=== PATIENT | female | born 2000 | race Caucasian/White ===

== ENCOUNTER 2020-05-20 18:37 | Emergency (ER) | payer OTHER, SELFPAY ==
--- NOTE | ~2020-05-20 | XR_ITS ---
EXAMINATION: XR chest 2V DATE: 05/20/2020 20:08 INDICATION: Left-sided chest pain TECHNIQUE: Frontal and lateral views of the chest are obtained COMPARISON: None available FINDINGS: The lungs are free of acute opacities. There is no pleural effusion or pneumothorax. The ca rdiomediastinal silhouette is normal. The visualized bones and soft tissues are unremarkable. IMPRESSION: 1. No acute cardiopulmonary abnormality. Reviewed, dictated and finalized at location A. NESS ACCOUNT EXECUTIVE
--- NOTE | 2020-05-20 18:54 | ECG_ITS ---
Measurements Intervals [place] Rate: 75 P: 48 DE: 138 QRS: 47 QRSD: 69 T: 36 QT: 366 QTc: 410 Interpretive Statements SINUS RHYTHM RSR' IN V1 OR V2, PROBABLY NORMAL VARIANT BASELINE ARTIFACT- I, II, AVR, AVF NORMAL ECG Electronically Signed On 05-21-2020 7:10:51 HEAD WOOD GRINDER by Yunier Ramirez D.O.
[2020-05-20 18:59] VITALS: BP 126/88; PULSE 78; RESP 18; O2SAT 100
--- NOTE | 2020-05-20 19:46 | ED.NEUROSD ---
HPI - Neuro Symptoms/Deficit General Chief Complaint: Neuro Symptoms/Deficit Stated Complaint: palpitaions, facial numbness apr 30 Time Seen by Provider: 05/20/20 19:14 History of Present Illness HPI Narrative: Patient is a 19-year-old female who presents ER with complaints of chest pain/headache. Symptoms began 2 days ago. She started having left-sided chest pain nonradiating that was intense initially and then has decreased. Unsure modifying factors. She then felt like she was having palpitations and also developed some brief changes in her vision that have resolved and developed diffuse headache that is aching and fullness. No sinus congestion or sore throat. No productive cough. No ringing in ears but does have some pressure in her right ear. Has not had similar symptoms before. Does report that she had some mild anxiousness when it occurred but that is since resolved. Related Data Home Medications Medication Instructions Recorded Confirmed No Home Medications 05/20/20 05/20/20 Allergies Allergy/AdvReac Type Severity Reaction Status Date / Time No Known Allergies Allergy Verified 05/20/20 18:58 Review of Systems Review of Systems: All systems reviewed & are unremarkable except as noted in HPI and below Constitutional: Constitutional: Denies chills, Denies fever(s) and Denies weakness ENT: Denies nasal congestion and Denies sore throat Comments: Right ear pressure Cardiovascular: Cardiovascular: Reports chest pain, Denies rapid heart rate and Denies radiating jaw, neck or arm pain Respiratory: Respiratory: Denies cough, Denies dyspnea and Denies wheezing Gastrointestinal: Gastrointestinal: Denies abdominal pain, Denies nausea and Denies vomiting Neurologic: Reports headache(s), Denies focal weakness and Denies numbness PMFSH Past Medical History Medical History (Updated 05/20/20 @ 21:00 by Carmine Hooper MD) Anxiety Kidney stones Surgical History Surgical History (Updated 05/20/20 @ 19:48 by Carmine Hooper MD) History of abdominal surgery 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 Social History Social History (Updated 05/20/20 @ 19:48 by Carmine Hooper MD) Smoking status: Never smoker Gender identity (if verbalized by the patient): Female Exam Narrative: Exam Narrative: GENERAL: Well-appearing, well-nourished, and in no acute distress. HEAD: Normocephalic, atraumatic. EYES: PERRL and EOMI. ENT: Mucous membranes moist. TMs normal bilaterally. NECK: Supple. No carotid bruits. CHEST: Clear to auscultation. No respiratory distress. HEART: Regular rate and rhythm. Normal peripheral pulses. ABDOMEN: Soft, nontender, nondistended. EXTREMITIES: Normal range of motion. No edema. SKIN: Warm, dry, no rash. NEURO: Alert and oriented x3. Course Course Emergency Course: Informed of results. Sx improved, still pressure in the ear, will give meclizine. Vital Signs Vital signs: Vital Signs Pulse Rate 78 05/20/20 18:59 Respiratory Rate 18 05/20/20 18:59 Blood Pressure 126/88 05/20/20 18:59 Pulse Oximetry 100 05/20/20 18:59 Pulse Rate 78 05/20/20 18:59 Respiratory Rate 18 05/20/20 18:59 Blood Pressure 126/88 05/20/20 18:59 Pulse Oximetry 100 05/20/20 18:59 MDM - Neuro Symptoms/Deficit Lab Data Result diagrams: 05/20/20 19:46 05/20/20 19:46 Labs: Lab Results 05/20/20 05/20/20 05/20/20 Range/Units 19:46 19:46 19:46 WBC 7.0 (4.5-10.0) K/mm3 RBC 4.51 (4.2-5.4) M/mm3 Hgb 13.3 (12.0-15.0) g/dL Hct 38.6 (37.0-47.0) % MCV 85.6 (80-100) fl MCH 29.5 (26-34) pg MCHC 34.5 (32-36) g/dl RDW 12.3 (11.5-14.5) % Plt Count 318 (150-375) k/mm3 MPV 9.2 (7.4-10.4) fl Immature Gran % (Auto) 0.3 (0-0.5) % Neut % (Auto) 61.8 (45.5-73.1) % Lymph % (Auto) 28.5 (18.3-44.2) % [place] % (Auto) 8.4 (2.6-8.5) % Eos % (Auto) 0.7 (0-4.4) % Baso % (Auto) 0.3 (0.2
[2020-05-20 19:54] LABS: Basophils Percent Auto 0.3 % (0.2-1.2); Eosinophils Absolute Auto 0.1 K/mm3 (0-0.3); Eosinophils Percent Auto 0.7 % (0-4.4); Hematocrit 38.6 % (37.0-47.0); Hemoglobin 13.3 g/dL (12.0-15.0); Immature Granulocyte Absolute 0.02 K/mm3 (0.00-0.031); Immature Granulocyte Percent A 0.3 % (0-0.5); Lymphocytes Percent Auto 28.5 % (18.3-44.2); Mean Corpuscular HGB Conc 34.5 g/dl (32-36); Mean Corpuscular Hemoglobin 29.5 pg (26-34); Mean Corpuscular Volume 85.6 fl (80-100); Mean Platelet Volume 9.2 fl (7.4-10.4); Monocytes Absolute Auto 0.6 K/mm3 (0.1-0.6); Monocytes Percent Auto 8.4 % (2.6-8.5); Neutrophils Absolute Auto 4.3 K/mm3 (1.3-6.7); Neutrophils Percent Auto 61.8 % (45.5-73.1); Platelet Count Result 318 k/mm3 (150-375); Red Blood Count 4.51 M/mm3 (4.2-5.4); Red Cell Distribution Width 12.3 % (11.5-14.5)
--- NOTE | 2020-05-20 19:55 | PC.NURSE ---
pt to x ray
[2020-05-20] MEDS: MORPHINE SULFATE (*CRX) 4 MG/ML INJ IV PUSH (20:03)
[2020-05-20 20:06] LABS: Prothrombin Time 13.8 Seconds (11.1-14.7)
[2020-05-20 20:08] LABS: Alanine Aminotransferase 14 U/L (4-35); Albumin Level 4.4 g/dL (3.5-5.1); Alkaline Phosphatase 69 U/L (38-126); Anion Gap 10 mmol/L (8-16); Aspartate Amino Transferase 21 U/L (14-36); Bilirubin,Total 0.7 mg/dL (0.2-1.3); Blood Urea Nitrogen 11 mg/dL (7-17); Calcium 9.3 mg/dL (8.4-10.2); Carbon Dioxide 23 mmol/L (22-30); Chloride 106 mmol/L (98-107); Estimated CRCL calculation 74 ml/min; Estimated Glomerular Filt Rate > 60; Glucose 86 mg/dL (65-105); Potassium 3.9 mmol/L (3.4-5.0); Sodium 139 mmol/L (137-145)
[2020-05-20 20:09] LABS: D Dimer 0.31 ug/mL (<0.48)
[2020-05-20 20:21] LABS: Troponin I < 0.012 ng/mL (0.000-0.034)
[2020-05-20] MEDS: MECLIZINE HCL 25 MG TABLET PO (21:19)
[2020-05-20 21:25] VITALS: BP 109/66; PULSE 76; RESP 16; O2SAT 98
== END 2020-05-20 21:29 | disposition home or self-care (01) ==
PROVIDERS: Emergency Provider Emergency Medicine
DX: R07.9 Chest pain, unspecified (principal); H92.01 Otalgia, right ear
CPT/HCPCS: 36415; 71046; 80053; 84484; 85025; 85380; 85610; 85730; 93005; 96374; 99284; A9270; J2270

== ENCOUNTER 2020-05-23 02:30 | Emergency (ER) | payer OTHER, SELFPAY ==
--- NOTE | ~2020-05-23 | XR_ITS ---
EXAMINATION: XR chest 1V portable 05/23/2020 03:00 INDICATION: Chest pain PROCEDURE: AP portable chest COMPARISON: 05/20/2020 FINDINGS: The lungs are clear. The cardiomediastinal silhouette is within normal limits. There are no pleural effusions. There is no pneumothorax suspected. IMPRESSION: 1: NO ACUTE CARDIOPULMONARY DISEASE. Reviewed, dictated and finalized at location A. RAL COUNSELOR
[2020-05-23 02:36] VITALS: BP 135/82; PULSE 87; RESP 18; TEMP 36.2; O2SAT 100
[2020-05-23 02:44] VITALS: PULSE 84
--- NOTE | 2020-05-23 02:44 | ECG_ITS ---
Measurements Intervals [place] Rate: 79 P: 48 AR: 137 QRS: 47 QRSD: 83 T: 21 QT: 362 QTc: 416 Interpretive Statements SINUS RHYTHM NORMAL ECG Electronically Signed On 05-23-2020 7:10:54 COMMERCIAL PLUMBER by Yunier Ramirez D.O.
--- NOTE | 2020-05-23 02:54 | ED.GENADULT ---
HPI - General Adult General Chief complaint: Chest Pain Stated complaint: chest pain Time Seen by Provider: 05/23/20 02:44 History of Present Illness HPI narrative: Patient is a 19-year-old female who presents the emergency department chief complaint of chest pain. Patient reports that she was seen in the emergency department for vertigo type symptoms and chest pain several days ago. The patient was treated with Antivert and an antihistamine. The patient derek had continual chest pain that she describes as sharp and at the sternal border since then. The patient states that it is worsened with inspiration and patient and improved with rest. Patient denies any significant past medical history reports she has not followed up with her primary care physician Related Data Allergies Allergy/AdvReac Type Severity Reaction Status Date / Time No Known Allergies Allergy Verified 05/20/20 18:58 Review of Systems Review of Systems: Narrative: A 10 system review of systems was completed on the patient and is negative except for what is stated in the HPI. Nursing and ancillary documentation was reviewed. 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 Social History Social History Smoking status: Never smoker Gender identity (if verbalized by the patient): Female Exam Narrative: Exam Narrative: GENERAL: Well-appearing, well-nourished, and in no acute distress. HEAD: Normocephalic, atraumatic. EYES: PERRLA and EOMI. ENT: Nares clear, no rhinorrhea or epistaxis. Mucous membranes moist. NECK: Supple. CHEST: Clear to auscultation. No respiratory distress. Chest wall is tender to palpation along the sternal border HEART: Regular rate and rhythm. No murmur heard. Normal peripheral pulses. ABDOMEN: Soft, nontender, nondistended, normal active bowel sounds. EXTREMITIES: Normal range of motion. No edema. SKIN: Warm, dry, no rash. NEURO: No focal deficits. Alert and oriented x3. PSYCH: Normal mood and affect. Course Vital Signs Vital signs: Vital Signs Temperature 36.2 C L 05/23/20 02:36 Pulse Rate 87 05/23/20 02:36 Respiratory Rate 18 05/23/20 02:36 Blood Pressure 135/82 05/23/20 02:36 Pulse Oximetry 100 05/23/20 02:36 Temperature 36.2 C L 05/23/20 02:36 Pulse Rate 84 05/23/20 02:44 Respiratory Rate 18 05/23/20 02:36 Blood Pressure 135/82 05/23/20 02:36 Pulse Oximetry 100 05/23/20 02:36 Medical Decision Making Vital Signs Vital Signs: Vital Signs Temperature 36.2 C L 05/23/20 02:36 Pulse Rate 87 05/23/20 02:36 Respiratory Rate 18 05/23/20 02:36 Blood Pressure 135/82 05/23/20 02:36 Pulse Oximetry 100 05/23/20 02:36 Temperature 36.2 C L 05/23/20 02:36 Pulse Rate 84 05/23/20 02:44 Respiratory Rate 18 05/23/20 02:36 Blood Pressure 135/82 05/23/20 02:36 Pulse Oximetry 100 05/23/20 02:36 Discharge Plan Discharge Clinical Impression: Costalchondritis Patient Disposition: Home, Self-Care Condition: Stable Instructions: Antibiotic Form, Costochondritis (ED) Prescriptions: New ibuprofen 800 mg tablet 800 mg PO TID PRN (Reason: pain) Qty: 30 RF: 0 Follow-up/Referrals: PHYSICIAN NOT ON STAFF,NONSTAFF [Primary Care Provider] - Time of Disposition: 03:20
[2020-05-23] MEDS: KETOROLAC (*BKC) 60 MG/2 ML VIAL IM (03:53)
[2020-05-23 04:25] VITALS: BP 124/77; PULSE 68; RESP 19; O2SAT 99
== END 2020-05-23 04:27 | disposition home or self-care (01) ==
PROVIDERS: Emergency Provider Emergency Medicine
DX: M94.0 Chondrocostal junction syndrome [Tietze] (principal); Z87.442 Personal history of urinary calculi
CPT/HCPCS: 71045; 93005; 96372; 99283; J1885